=== PATIENT | female | born 1965 | race Caucasian/White ===

== ENCOUNTER 2019-08-15 05:05 | Emergency (ER) | payer MEDICAID ==
[~2019-08-15] VITALS: Ht 165.1 cm; Wt 72.7 kg
[2019-08-15] MEDS ORDERED: ipratropium/albuterol 3ml nebule NEB ONE (05:20)
[2019-08-15] MEDS ORDERED: ipratropium/albuterol 3ml nebule ONE (05:23)
[2019-08-15] MEDS ORDERED: acetaminophen 325mg tablet PO ONE (05:30)
[2019-08-15] MEDS ORDERED: methylPREDNISolone sod succ 125mg/2ml vial IV ONE (05:45)
[2019-08-15] MEDS ORDERED: azithromycin 250mg tablet PO ONE (05:45)
[2019-08-15] MEDS ORDERED: normal saline 1000ML IV soln IVB ONE (05:45)
[2019-08-15] MEDS ORDERED: azithromycin/NS 500mg/250ml 250 ML IV ONE (05:50)
[2019-08-15 05:53] LABS: BASOPHILS % (AUTO) 0.5 % (0-1); EOSINOPHILS % (AUTO) 0.9 % (0-6); HEMATOCRIT 41.2 % (35.0-45.0); HEMOGLOBIN 14.3 g/dl (12.0-16.0); LYMPHOCYTES # (AUTO) 0.5 X10'3 (1.1-4.8); LYMPHOCYTES % (AUTO) 11.2 % (21-51); MEAN CORPUSCULAR HEMOGLOBIN 34.3 PG (27.0-31.0); MEAN CORPUSCULAR HGB CONC 34.6 g/dL (33.0-36.5); MEAN CORPUSCULAR VOLUME 99.2 FL (78-98); MEAN PLATELET VOLUME 7.6 FL (7.4-10.4); MONOCYTES # (AUTO) 0.3 X10'3 (0-0.9); MONOCYTES % (AUTO) 7.7 % (2-12); NEUTROPHILS # (AUTO) 3.5 X10'3 (1.8-7.7); NEUTROPHILS % (AUTO) 79.7 % (42-75); PLATELET COUNT 214 X10'3 (140-440); RED BLOOD COUNT 4.15 X10'6 (4.20-5.60); WHITE BLOOD COUNT 4.4 X10'3 (4.5-11.0)
[2019-08-15 06:00] LABS: ALANINE AMINOTRANSFERASE 28 U/L (12-78); ALBUMIN 4.2 G/DL (3.4-5.0); ALBUMIN/GLOBULIN RATIO 1.4 (1.1-1.5); ALKALINE PHOSPHATASE 88 IU/L (46-116); ANION GAP 7 (8-16); ASPARTATE AMINO TRANSFERASE 23 U/L (10-37); BILIRUBIN,TOTAL 0.7 MG/DL (0.1-1.0); BLOOD UREA NITROGEN 12 MG/DL (7-18); BUN/CREATININE RATIO 11.3 (6.6-38.0); CALCIUM 9.1 MG/DL (8.5-10.1); CHLORIDE 108 MMOL/L (99-107); CREATININE 1.06 MG/DL (0.40-0.90); GLUCOSE 106 MG/DL (70-104); POTASSIUM 3.7 MMOL/L (3.5-5.1); SODIUM 141 MMOL/L (135-145); TOTAL CARBON DIOXIDE 26.2 MMOL/L (24-32); TOTAL PROTEIN 7.1 G/DL (6.4-8.2); eGFR 54 ML/MIN
--- NOTE | 2019-08-15 06:18 | NUR ---
Received report from CORINE Rush, care assumed at this time.
[2019-08-15] MEDS ORDERED: TAM75C PO (06:21)
[2019-08-15] MEDS ORDERED: AZIT-63 PO (06:46)
[2019-08-15] MEDS ORDERED: PRED20TA PO (06:46)
[2019-08-15] MEDS ORDERED: ALBU8HFA PO (07:18)
[2019-08-15 07:31] VITALS: BP 120/72
== END 2019-08-15 07:34 | disposition home or self-care (01) ==
LOC: ER 05:06
DX: J06.9 Acute upper respiratory infection, unspecified (principal); F17.200 Nicotine dependence, unspecified, uncomplicated; Z79.899 Other long term (current) drug therapy
CPT/HCPCS: 36415; 71046; 80053; 83605; 85025; 87040; 93005; 94640; 96365; 96375; 99284; J0456; J2930; J7030; 94760